=== PATIENT | female | born 1940 | race Caucasian/White ===

== ENCOUNTER 2016-09-01 18:47 | Emergency (ER) | payer MEDICARE, BC ==
[~2016-09-01 18:47] MED LIST: ACETSUP650 PR; ALEVE220 MG PO; AMB10 PO; ASA5GR PO; ASAB PO; ATV.5 PO; BACDS PO; CEFT5 PO; CIP5 PO; COREG3; COREG3 PO; COREG6 PO; CORLANOR 5 MG PO; CORLANOR5 MG PO; COZ25 PO; CRESTOR5 MG PO; DSS PO; DURA25 TOP; FESO4 PO; FLAG500TAB PO; FLONASE NAS; FLOVENT DISK250 MCG INH; FLOVENT220 INH; FOLIC PO; IMOD PO; IMODIUM ADV1 CHW PO; IRON325 MG PO; KDUR20 PO; L20 PO; LEVAQUIN750 MG PO; LOVENOX40 SC; MACROBID PO; MARI2.5 PO; MEGACEUDL PO; MELA3 PO; MIRALAXPKT PO; MVI PO; NORCO1 TA1 PO; NORCO1 TA2 PO; NOVOLOG SC; NUCYNTA PO; NUCYNTA50 MG PO; OXYCOD PO; OXYCON10 PO; PCET PO; PEP20 PO; PEPTO BISMOL LIQ1 ML PO; PERCOCET 10/3251 TAB PO; PR25 PO; PRIN2.5 PO; PROAIR HFA INH; PROAIR HFA PO; PROTONIXIV IV; PYR100B PO; ROXICET1 TAB PO; SPIRO25 PO; SYSTANE OPH; T PO; TOPXL25 PO; TPN IV; ULTRAM50 PO; VENTOLIN HFA INH; VITAMIN B12 OTC PO; VITAMIN D PO; VITAMIN D1000 UNI1 PO; ZOFRAN2ML IM; ZOFRAN4 PO; ZOFRAN8 PO
[2016-09-01 19:17] LABS: BASOPHILS 0.1 %; BASOPHILS ABSOLUTE 0.01 10/3/uL (0.0-0.16); EOSINOPHILS 0.6 %; EOSINOPHILS ABSOLUTE 0.05 10/3/uL (0.0-0.53); ER CBC TAT 0 Hrs 03 Mins; HEMOGLOBIN 11.2 g/dL (12.0-16.0); IMMATURE GRANULOCYTES 0.2 %; IMMATURE GRANULOCYTES ABSOLUTE 0.02 10/3/uL (0.0-0.11); LYMPHOCYTES 17.3 %; LYMPHOCYTES ABSOLUTE 1.46 10/3/uL (0.67-4.30); MEAN CORPUS HGB CONC 33.4 g/dL (32.0-36.0); MEAN CORPUSCULAR HEMOGLOB 27.9 pg (26.0-34.0); MEAN CORPUSCULAR VOLUME 83.5 fL (80-100); MEAN PLATELET VOLUME 9.4 fL (9.2-13.0); MONOCYTES 9.1 %; MONOCYTES ABSOLUTE 0.77 10/3/uL (0.21-1.20); NEUTROPHILS 72.7 %; NEUTROPHILS ABSOLUTE 6.15 10/3/uL (2.02-8.40); PLATELET COUNT 274 10/3/uL (150-400); RED CELL COUNT 4.01 10/6/uL (4.0-5.6); WHITE BLOOD CELLS 8.5 10/3/uL (4.5-10.5)
[2016-09-01 19:19] LABS: HEMATOCRIT 33.5 % (36.0-48.0); MANUAL DIFF NO %
[2016-09-01 19:26] LABS: INTERNATIONAL NORMAL RATI 1.1 UNITS (-); PROTIME (NOT ORD) 13.6 SEC (12.0-14.5)
[2016-09-01 19:27] LABS: PARTIAL THROMBO TIME 39.1 SEC (22.5-37.2)
[2016-09-01 19:35] LABS: LACTATE 0.9 MMOL/L (0.3-2.4)
[2016-09-01 19:36] LABS: A/G RATIO 0.6 (0.7-1.9); ALBUMIN 2.4 G/DL (3.5-5.0); ALKALINE PHOSPHATASE 247 U/L (45-117); BUN (BLOOD UREA NITROGEN) 10 MG/DL (6-23); CALCIUM, SERUM 9.1 MG/DL (8.5-10.4); CHLORIDE, SERUM 99 MMOL/L (96-112); CO2 (CARBON DIOXIDE) 25 MMOL/L (24-34); CREATININE 0.47 MG/DL (0.55-1.02); GFR AFRICAN AMERICAN 113 ML/MIN (>=60); GFR NON AFRICAN AMERICAN 97 ML/MIN (>=60); GLOBULIN 3.9 G/DL (2.5-4.1); GLUCOSE, SERUM 86 MG/DL (60-99); SGOT(AST) 29 U/L (5-40); SGPT(ALT) 11 U/L (5-65); SODIUM, SERUM 135 MMOL/L (135-148); TOTAL BILIRUBIN 0.9 MG/DL (0-1.2); TOTAL PROTEIN 6.3 G/DL (6.0-8.5)
[2016-09-01 19:37] LABS: POTASSIUM, SERUM 3.7 MMOL/L (3.5-5.3)
[2016-09-01 20:08] LABS: PROCALCITONIN 0.07 ng/mL (<0.5)
[2016-09-01 21:22] LABS: ASCORBIC ACID (UR NOT ORDER) NEG (NEG); BILIRUBIN, URINE NEGATIVE (NEG); ER URINALYSIS TAT 0 Hrs 19 Mins; KETONE, URINE 80 MG/DL (NEG); LEUKOCYTE ESTERASE(NOT OR TRACE (NEG); NITRITE (URINE) NEG (NEG); WBC (NOT ORDERED) (RFLEX) 9 (0-5)
== END 2016-09-02 00:08 | disposition home or self-care (01) ==
LOC: ER 18:47
PROVIDERS: Emergency Medicine
DX: C18.9 Malignant neoplasm of colon, unspecified (principal); I10 Essential (primary) hypertension; D64.9 Anemia, unspecified; Z88.8 Allergy status to other drugs, medicaments and biological substances; Z79.899 Other long term (current) drug therapy
CPT/HCPCS: 36415; 71010; 74176; 80053; 81001; 83605; 84145; 85025; 85610; 85730; 86850; 86900; 86901; 87040; 93005; 96374; 96375; 99285; J1170; J2405